=== PATIENT | male | born 1985 | race Caucasian/White ===

== ENCOUNTER 2018-09-08 15:58 | Emergency (ER) | payer MEDICAID ==
[~2018-09-08] VITALS: Ht 182.9 cm; Wt 154.2 kg
[2018-09-08 16:00] VITALS: BP 160/101
--- NOTE | 2018-09-08 16:03 | NUR ---
PT AMBULATES TO BED 1
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
[2018-09-08] MEDS ORDERED: KETOROLAC 60 MG/2 ML VIAL IM ONE (17:25)
--- NOTE | 2018-09-08 17:34 | NUR ---
PT TO XRAY VIA WHEELCHAIR
--- NOTE | 2018-09-08 17:54 | NUR ---
pt still at xray at this time.
--- NOTE | 2018-09-08 18:05 | NUR ---
patient returned from xray via gurney and returned to rm 1 without incident
[2018-09-08 18:35] VITALS: BP 150/100
--- NOTE | 2018-09-08 18:35 | NUR ---
Patient discharged with v/s stable. Written and verbal after care instructions given and explained. Patient alert, oriented and verbalized understanding of instructions. Ambulatory with steady gait. All questions addressed prior to discharge. ID band removed. Patient advised to follow up with PMD. Rx of tramadol and motrin given. Patient educated on indication of medication including possible reaction and side effects. Opportunity to ask questions provided and answered.
== END 2018-09-08 18:33 | disposition home or self-care (01) ==
LOC: MED 15:58
DX: S20.212A Contusion of left front wall of thorax, initial encounter (principal); S60.221A Contusion of right hand, initial encounter; S30.0XXA Contusion of lower back and pelvis, initial encounter; I10 Essential (primary) hypertension; Z88.2 Allergy status to sulfonamides; W18.39XA Other fall on same level, initial encounter; Y93.89 Activity, other specified; Y92.89 Other specified places as the place of occurrence of the external cause; Y99.8 Other external cause status
CPT/HCPCS: 71101; 72100; 73130; 96372; 99284; J1885